=== PATIENT | male | born 1970 | race Two or more races ===

== ENCOUNTER 2016-06-13 11:14 | Emergency (ER) | payer OTHER ==
[2016-06-13] MEDS ORDERED: METHOCARBAMOL 750 MG TABLET ONE (11:55)
[2016-06-13] MEDS ORDERED: PREDNISONE 20 MG TABLET ONE (11:55)
[2016-06-13] MEDS ORDERED: KETOROLAC TROMETHAMINE 30 MG/ML 1 ML VIAL ONE (11:55)
== END 2016-06-13 12:29 | disposition home or self-care (01) ==
LOC: ED 11:14
DX: M54.16 Radiculopathy, lumbar region (principal); K21.9 Gastro-esophageal reflux disease without esophagitis; Z87.891 Personal history of nicotine dependence
CPT/HCPCS: 99283 ×2; 96372; J7512; A9270; J1885

== ENCOUNTER 2016-06-15 18:08 | Emergency (ER) | payer OTHER | END 2016-06-15 19:17 | disposition home or self-care (01) | LOC: ED 18:08 | DX: M54.5 Low back pain (principal); Z87.891 Personal history of nicotine dependence ==

== ENCOUNTER 2016-07-02 15:06 | Emergency (ER) | payer OTHER | END 2016-07-02 16:43 | disposition home or self-care (01) | LOC: ED 15:06 | DX: R11.10 Vomiting, unspecified (principal); K21.9 Gastro-esophageal reflux disease without esophagitis; Z87.891 Personal history of nicotine dependence ==